=== PATIENT | female | born 1995 | race Caucasian/White ===

== ENCOUNTER 2017-03-29 21:29 | Emergency (ER) | payer OTHER ==
[~2017-03-29] VITALS: Ht 167.6 cm; Wt 86.4 kg
[~2017-03-29 21:29] MED LIST: NORG1TAB15 PO; POLY17PO6 PO
[2017-03-29 21:38] VITALS: BP 128/87; PULSE 72; RESP 20; O2SAT 99
--- NOTE | 2017-03-29 21:58 | ED.REPORT ---
HPI-Abd Pain F Under 40 Date of Service March 29, 2017 ED Provider: Roberth Ireland DO A 22 year old female with a history of polycystic ovarian disease, ruptured ectopic in 09/2017 and cholecystectomy presents to the ED complaining of lower and mid abdominal pain. The pain began at 17:15 today and feels the same as when she was in the ED before. This is accompanied by nausea. The pt does not believe that she is at this time. Nursing Notes Stated Complaint: LOWER ABDOMINAL PAIN Chief Complaint: Female Abdominal Pain Nursing Notes Reviewed: Yes Allergies: Coded Allergies: No Known Allergies (Unverified Allergy, Unknown, 08/20/15) Scheduled Norgestimate-Ethinyl Estradiol (Tri-Sprintec) 1 Each Tablet 1 EACH PO DAILY Polyethylene Glycol 3350 (Miralax) 17 Gm Powd.pack 17 GM PO DAILY General Time Seen by MD: 21:57 Chief Complaint Abdominal pain Hx Obtained From: Patient Arrived By: Walk-in Sudden in Onset?: No Onset Occurred: 1 - 4 hours ago Symptom Duration: Since onset Recent Healthcare: Recent doctor visit, Recent hospitalization Similar Sx Previous: Yes Past Medical History Past Medical History polycystic ovarian disease UTI heart murmur Ectopic s/p surgery Past Surgical History Ectopic removal, right Smoking History Never Smoker Social History Other Social History: Good social support Ambulatory Status Independent Review of Systems Respiratory: Denies: Non-productive cough, Shortness of breath Cardiovascular: Denies: Chest pain GI: Reports: Abdominal pain, Nausea Musculoskeletal: Denies: Back pain, Neck pain Complete sys rev & neg: except as marked. Physical Exam Initial Vital Signs Vital Signs (First) Date Time Temp Pulse Resp B/P Pulse Ox O2 Delivery O2 Flow Rate FiO2 03/29/17 21:38 36.6 72 20 128/87 99 Room Air Initial VS: Reviewed General/Constitutional: Awake, Alert Respiratory / Chest: Atraumatic, Breath sounds NL, Breath sounds = bilat, No respiratory distress Cardiovascular: Heart rate NL, Regular rhythm, Heart sounds NL Abdomen: Atraumatic, Soft diffuse lower abdominal tenderness without rebound Back: Atraumatic, Full range of motion Head / Eyes: Atraumatic, Normocephalic, PERRL, EOMI ENT: Atraumatic, Airway patent, Mucous membranes moist Skin: Atraumatic, Color NL, No rash, Warm, Dry Neurologic: Oriented X3, Speech NL, No motor deficits, No sensory deficits Neck: Atraumatic, Supple, Full range of motion Upper Extremity / MS: Atraumatic, Full range of motion Lower Extremity / Pelvis / MS: Atraumatic, Full range of motion Psychiatric: Affect NL, Mood NL Interpretation & Diagnostics Interpretation & Diagnostics: Pelvis US: 3.5 cm left ovarian cyst no signs of torsion Lab Results Interpretation Result Diagram: 03/29/17215203/29/172152 Test 03/29/17 21:53 White Blood Count 9.7th/mm3 (3.8-10.1) Red Blood Count 4.68mil/mm3 (3.90-5.20) Hemoglobin 12.0g/dL (12.0-15.6) Hematocrit 37.3% (35.0-46.0) Mean Corpuscular Volume 79.7fL (81-100) Mean Corpuscular Hemoglobin 25.6pg (27.0-35.0) Mean Corpuscular Hemoglobin Concent 32.2% (32.0-37.0) Red Cell Distribution Width 13.0% (12.3-15.4) Platelet Count 271bil/L (150-400) Neutrophils (%) (Auto) 48.6% (40-74) Lymphocytes (%) (Auto) 39.3% (14-46) Monocytes (%) (Auto) 8.0% (4-12) Eosinophils (%) (Auto) 3.8% (0-5) Basophils (%) (Auto) 0.2% (0-3) Sodium Level 139mEq/L (134-144) Potassium Level 3.7mEq/L (3.5-5.2) Chloride Level 100mEq/L (97-108) Carbon Dioxide Level 24mmol/L (18-29) Blood Urea Nitrogen 7mg/dL (6-20) Creatinine 0.58mg/dL (0.57-1.00) Estimat Glomerular Filtration Rate 190mL/min (>59) Glucose Level 98mg/dL (60-99) Calcium Level 9.2mg/dL (8.5-10.1) Total Bilirubin 0.2mg/dL (0.0-1.2) Aspartate Amino Transf (AST/SGOT) 19U/L (0-50) Alanine Aminotransferase (ALT/SGPT) 13U/L (0-32) Alkaline Phosphatase 74U/L (25-150) Total Protein 7.6g/dL (6.4-8.4) Albumin 4.0g/dL (3.4-5.0) HCG Beta Subunit 0.500mIU/mL Hold Chambers Top Tube Received (Received) Pulse Oximetry Interpretation Pulse Oximetry Interpretation: 99% on room air Pulse Oximetry: Pulse Ox normal Re-Eval/Medical Decision Med Decision/Clinical Course Torsion and ectopic ruled out. No signs or symptoms consistent with PID. We will treat symptomatically. Ovarian cyst identified. GC chlamydia testing underway. Recommend close outpatient follow-up. Source of Hx: Old records Re-Evaluation/Progress #1: Time of Eval: 22:29 Patient Status: Condition improved Re-Evaluation/Progress Note: Pt rechecked, who is comfortable. The plan for treatment is discussed. Re-Evaluation/Progress #2: Time of Eval: 01:19 Patient Status: Condition improved Re-Evaluation/Progress Note: Pt rechecked, who is feeling much better. The diagnosis and plan for discharge are discussed. The pt understands and agrees with the plan. All questions are addressed at this time. Counseled Regarding: Diagnosis, Lab results, Need for follow-up, When/why to return to ED Discharge & Departure Primary Impression: Pelvic pain Additional Impression: Left ovarian cyst Disposition: Home Discharge Condition All VS Reviewed: Yes Condition: Stable Patient Instructions: Ovarian Cyst (GEN), Pelvic Pain in Women (ED) Additional Instructions: Your ultrasound showed no evidence of , including ectopic . It did show that you have a left ovarian cyst. Your labs were otherwise reassuring. Take 1 to 2 [place] every 6 hours as needed for severe pain. Do not drink, drive, or consume acetaminophen while taking the [place]. Call your primary care physician in the morning to arrange for a follow up appointment this week. We sent your urine off for infectious disease testing. Have this followed up with your primary care physician as well. Return to the emergency department if you develop any new or worsening symptoms. Referrals: Denisa Vasquez ARNP (PCP) Curtis Coronel MD (Family) Scribe Attestation Portions of this note were transcribed by Petar Agee. I, Dr. Ireland personally performed the history, physical exam and medical decision-making; I reviewed and confirmed the accuracy of the information in the transcribed note. Signed by: Luis A Gardner, 03/30/17 and 0210. copies to: Denisa Vasquez ARNP; Curtis Coronel MD, Todd P DO March 29, 2017 21:58 PETAR AGEE March 29, 2017 22:13
[2017-03-29] MEDS ORDERED: Ondansetron 2 mg/mL 2 mL Inj IVPUSH PRN (22:15)
[2017-03-29 22:19] LABS: BASOPHILS % (AUTO) 0.2 % (0-3); EOSINOPHILS % (AUTO) 3.8 % (0-5); Mean Corpuscular Hemoglobin 25.6 pg (27.0-35.0); Mean Corpuscular Volume 79.7 fL (81-100); NEUTROPHILS % (AUTO) 48.6 % (40-74); Platelet Count 271 bil/L (150-400)
[2017-03-29] MEDS: HYDROmorphone 0.5 mg/0.5 mL iSecure Syringe IVPUSH PRN ×2 (22:21→23:49)
[2017-03-30] MEDS: HYDROmorphone 0.5 mg/0.5 mL iSecure Syringe IVPUSH PRN (00:46)
[2017-03-30] MEDS ORDERED: _HYDROcodone/APAP 5-325 mg Tablet PO PRN (01:10)
[2017-03-30 01:33] VITALS: BP 121/50; PULSE 75; RESP 16; O2SAT 97
[2017-03-30 05:36] LABS: APPEARANCE,URINE HAZY (CLEAR,HAZY); COLOR,URINE DARK YELLOW (YELLOW); OCCULT BLOOD,URINE NEGATIVE (NEGATIVE); PH,URINE 6.5 (5.0-8.0); UROBILINOGEN,URINE NORMAL (NORMAL)
--- NOTE | 2017-03-30 08:17 | DRSVH ---
PROCEDURE: US PELVIC SONOGRAM + TRANSVAGINAL SONOGRAM INDICATIONS: pelvic pain, recent ectopic TECHNIQUE: Real-time scanning was performed of the pelvic organs, with image documentation. Additional endovagi nal scanning was necessary due to incomplete visualization of the adnexal and endometrial structures by transabdominal scanning. COMPARISON: [facility], US, US PELVIC+TRANSVAG, 10/05/2016, 1:57. FINDINGS: Transabdominal scanning: Limited scanning through the kidneys shows no hydronephrosis. No pathologi c free abdominal or pelvic fluid. Endovaginal scanning: Uterus: Uterus is normal in size at 3.6 x 4.7 x 6.6 cm, anteverted. The endometrium measures 1.4 mm in combined thickness. Ovaries: The right ovary measures 2.3 x 2.5 x 4.1 cm and the left measures 4.4 x 4.0 x 4.5 cm. There is a left sided ovarian cyst measuring up to 3.2 x 3.1 x 3.5 cm. No abnormal internal or marginal v ascularity is associated. This cyst appears simple. IMPRESSION: Source of current pain is not found. Reportedly a recent ectopic had occurred in the right fallopian tube was removed. On the right in the left no abnormal fluid or solid abnorma lity is seen. There is a simple appearing but dominant left ovarian cyst measuring up to 3.5 cm in m aximal dimension. Note: These findings are concordant with the preliminary interpretation. Dictated by: Sloan Clifford M.D. on 03/30/2017 at 8:13 Approved by: Sloan Clifford M.D. on 03/30/2017 at 8:15
== END 2017-03-30 01:36 | disposition home or self-care (01) ==
LOC: SED 21:29
DX: N83.292 Other ovarian cyst, left side (principal); E28.2 Polycystic ovarian syndrome; Z86.79 Personal history of other diseases of the circulatory system; Z87.440 Personal history of urinary (tract) infections; Z87.59 Personal history of other complications of pregnancy, childbirth and the puerperium; Z79.3 Long term (current) use of hormonal contraceptives
CPT/HCPCS: 36415; 76830; 76856; 80053; 81000; 81002; 81025; 84702; 85025; 87491; 87591; 96374; 96375; 96376; 99285; J1170; J2405

== ENCOUNTER 2017-05-05 19:47 | Emergency (ER) | payer OTHER ==
[~2017-05-05] VITALS: Ht 167.6 cm; Wt 86.4 kg
[2017-05-05 19:50] VITALS: BP 125/90; PULSE 56; RESP 20; O2SAT 100
== END 2017-05-05 20:50 | disposition left against medical advice (07) ==
LOC: SED 19:47
DX: Z53.21 Procedure and treatment not carried out due to patient leaving prior to being seen by health care provider (principal)

== ENCOUNTER 2017-07-22 11:29 | Emergency (ER) | payer OTHER ==
[~2017-07-22] VITALS: Ht 167.6 cm; Wt 86.4 kg
[2017-07-22 11:32] VITALS: BP 121/79; PULSE 60; RESP 16; O2SAT 99
--- NOTE | 2017-07-22 13:05 | ED.REPORT ---
HPI-Abd Pain F Under 40 Date of Service Jul 22, 2017 ED Provider: Fredis Torres DO A 22 year old female with a history of polycystic ovarian disease with ovarian torsion, ectopic and UTI presents to the ED complaining of LLQ abdominal pain onset two weeks ago. The pain feels similar to previous ovarian cysts and has been gradually worsening. This is accompanied by diarrhea, though the pt denies fever, vomiting or dysuria. The pt suspects that she has a cyst that may rupture, but does not think that the ovary has torsed. Nursing Notes Stated Complaint: ABDOMINAL PAIN Chief Complaint: Female Abdominal Pain Nursing Notes Reviewed: Yes Allergies: Coded Allergies: No Known Allergies (Unverified Allergy, Unknown, 07/22/17) Scheduled Norgestimate-Ethinyl Estradiol (Tri-Sprintec) 1 Each Tablet 1 EACH PO DAILY Polyethylene Glycol 3350 (Miralax) 17 Gm Powd.pack 17 GM PO DAILY General Time Seen by MD: 13:04 Chief Complaint Abdominal pain Hx Obtained From: Patient Arrived By: Walk-in Sudden in Onset?: No Onset Occurred: More than a week ago... Symptom Duration: Since onset Recent Healthcare: Recent doctor visit Similar Sx Previous: Yes Past Medical History Past Medical History polycystic ovarian disease UTI ovarian torsion heart murmur Ectopic s/p surgery Past Surgical History Ectopic removal, right Smoking History Never Smoker Social History Other Social History: Good social support Ambulatory Status Independent Review of Systems Constitutional: Denies: Fever Respiratory: Denies: Non-productive cough, Shortness of breath Cardiovascular: Denies: Chest pain GI: Reports: Abdominal pain, Diarrhea, Denies: Nausea, Vomiting Female: Denies: Dysuria Musculoskeletal: Denies: Back pain, Neck pain Complete sys rev & neg: except as marked. Physical Exam Initial Vital Signs Vital Signs (First) Date Time Temp Pulse Resp B/P Pulse Ox O2 Delivery O2 Flow Rate FiO2 07/22/17 11:32 36.8 60 16 121/79 99 Room Air Initial VS: Reviewed General/Constitutional: Awake, Alert Respiratory / Chest: Atraumatic, Breath sounds NL, Breath sounds = bilat, No respiratory distress Cardiovascular: Heart rate NL, Regular rhythm, Heart sounds NL Abdomen: Atraumatic, Soft, No guarding, No rebound left-sided pelvic tenderness Back: Atraumatic, Full range of motion Head / Eyes: Atraumatic, Normocephalic, PERRL, EOMI ENT: Atraumatic, Airway patent, Mucous membranes moist Skin: Atraumatic, Color NL, No rash, Warm, Dry Neurologic: Oriented X3, Speech NL, No motor deficits, No sensory deficits Neck: Atraumatic, Supple, Full range of motion Upper Extremity / MS: Atraumatic, Full range of motion Lower Extremity / Pelvis / MS: Atraumatic, Full range of motion Psychiatric: Affect NL, Mood NL Interpretation & Diagnostics Interpretation & Diagnostics: Pelvis US: IMPRESSION: No sonographic abnormality identified. Dictated by: Cristy Lora MD, PhD on 07/22/2017 at 14:54 Approved by: Cristy Lora MD, PhD on 07/22/2017 at 14:56 Lab Results Interpretation Result Diagram: 07/22/17 1225 07/22/17 1300 Test 07/22/17 12:25 07/22/17 13:00 07/22/17 13:10 07/22/17 14:07 White Blood Count 7.9th/mm3 (3.8-10.1) Red Blood Count 4.64mil/mm3 (3.90-5.20) Hemoglobin 12.2g/dL (12.0-15.6) Hematocrit 36.7% (35.0-46.0) Mean Corpuscular Volume 79.1fL (81-100) Mean Corpuscular Hemoglobin 26.3pg (27.0-35.0) Mean Corpuscular Hemoglobin Concent 33.2% (32.0-37.0) Red Cell Distribution Width 13.9% (12.3-15.4) Platelet Count 240bil/L (150-400) Neutrophils (%) (Auto) 58.8% (40-74) Lymphocytes (%) (Auto) 29.9% (14-46) Monocytes (%) (Auto) 7.5% (4-12) Eosinophils (%) (Auto) 3.4% (0-5) Basophils (%) (Auto) 0.3% (0-3) Sodium Level 139mEq/L (134-144) Potassium Level 4.1mEq/L (3.5-5.2) Chloride Level 103mEq/L (97-108) Carbon Dioxide Level 21mmol/L (18-29) Blood Urea Nitrogen 8mg/dL (6-20) Creatinine 0.83mg/dL (0.57-1.00) Estimat Glomerular Filtration Rate 126mL/min (>59) Glucose Level 139mg/dL (60-99) Calcium Level 9.0mg/dL (8.5-10.1) Total Bilirubin 0.2mg/dL (0.0-1.2) Aspartate Amino Transf (AST/SGOT) 12U/L (0-50) Alanine Aminotransferase (ALT/SGPT) 8U/L (0-32) Alkaline Phosphatase 60U/L (25-150) Total Protein 7.1g/dL (6.4-8.4) Albumin 3.7g/dL (3.4-5.0) Hold Urine Received (Received) Hold Chambers Top Tube Received (Received) Re-Eval/Medical Decision Med Decision/Clinical Course Med Decision/Clinical Course: Nonspecific abdominal pain with no evidence of ovarian pathology, labs reassuring. Return in follow-up precautions given. Source of Hx: Old records Re-Evaluation/Progress : Time of Eval: 14:26 Patient Status: Condition improved Re-Evaluation/Progress Note: Pt rechecked, who is comfortable. The diagnosis and plan for discharge are discussed. The pt understands and agrees with the plan. All questions are addressed at this time. Counseled Regarding: Diagnosis, Lab results, Need for follow-up, When/why to return to ED Discharge & Departure Primary Impression: LLQ pain Disposition: Home Discharge Condition All VS Reviewed: Yes Condition: Stable Additional Instructions: Your labs and ultrasound are reassuring. Follow-up with your regular doctor in the next few days as needed. Return to the ER as needed if worse. Referrals: Denisa Vasquez ARNP (PCP) Scribe Attestation Portions of this note were transcribed by Petar Agee. I, Dr. Torres personally performed the history, physical exam and medical decision-making; I reviewed and confirmed the accuracy of the information in the transcribed note. copies to: Denisa Vasquez ARNP O'Kelley, Timothy S DO Jul 22, 2017 13:05 PETAR AGEE Jul 22, 2017 13:17
[2017-07-22 13:39] LABS: BASOPHILS % (AUTO) 0.3 % (0-3); EOSINOPHILS % (AUTO) 3.4 % (0-5); MONOCYTES % (AUTO) 7.5 % (4-12); Mean Corpuscular Hemoglobin 26.3 pg (27.0-35.0); Mean Corpuscular Volume 79.1 fL (81-100); NEUTROPHILS % (AUTO) 58.8 % (40-74); Platelet Count 240 bil/L (150-400)
[2017-07-22 14:24] VITALS: BP 129/83; PULSE 79; RESP 20; O2SAT 98
[2017-07-22 14:41] VITALS: BP 129/83; PULSE 79; RESP 20; O2SAT 98
--- NOTE | 2017-07-22 14:58 | DRSVH ---
PROCEDURE: US PELVIC SONOGRAM + TRANSVAGINAL SONOGRAM INDICATIONS: left pelvic pain, ho torsion TECHNIQUE: Real-time scanning was performed of the pelvic organs, with image documentation. Additional endovagi nal scanning was necessary due to incomplete visualization of the adnexal and endometrial structures by transabdominal scanning. COMPARISON: None. FINDINGS: (orthogonal measurements) Uterus size: 7.36 cm, 3.27 cm, 3.93 cm Endometrium thickness: 4.80 mm Right ovary size: 2.54 cm, 1.56 cm, 1.70 cm Left ovary size: 2.05 cm, 2.67 cm, 1.75 cm Transabdominal scanning: Limited scanning through the kidneys shows no hydronephrosis. No pathologi c free abdominal or pelvic fluid. Endovaginal scanning: Uterus: Uterus is normal in size and appearance. Endometrium is within normal physiologic limits. Ovaries: Right adnexa measures 2.5 x 1.6 x 1.7 cm and is sonographically normal. Left adnexa measures 2.1 x 2.7 x 1.8 cm and is sonographically normal. IMPRESSION: No sonographic abnormality identified. Dictated by: Cristy Lora MD, PhD on 07/22/2017 at 14:54 Approved by: Cristy Lora MD, PhD on 07/22/2017 at 14:56
== END 2017-07-22 14:41 | disposition home or self-care (01) ==
LOC: SED 11:29
DX: R10.32 Left lower quadrant pain (principal); R19.7 Diarrhea, unspecified; Z87.440 Personal history of urinary (tract) infections